=== PATIENT | male | born 1960 | race Caucasian/White ===

== ENCOUNTER 2021-09-15 05:39 | Observation (INO) | payer BC ==
[~2021-09-15] VITALS: Ht 175.3 cm; Wt 91.8 kg
[2021-09-15 06:09] LABS: BASOPHILS % (AUTO) 0.8 % (0.0-5.0); EOSINOPHILS % (AUTO) 0.9 % (0.0-8.0); HEMATOCRIT 46.4 % (42-54); LYMPHOCYTES % (AUTO) 28.9 % (21.0-51.0); MEAN CORPUSCULAR HEMOGLOBIN 29.9 pg (27.0-33.0); MEAN CORPUSCULAR HGB CONC 35.1 g/dL (32.0-36.0); MONOCYTES % (AUTO) 7.6 % (3.0-13.0); NEUTROPHILS % (AUTO) 61.4 % (40.0-77.0); PLATELET COUNT (AUTO) 236 K/uL (130-400); RED BLOOD CELL COUNT(AUTO) 5.46 MIL/uL (4.50-6.20); RED CELL DISTRIBUTION WIDTH 13.2 % (11.0-15.5); WHITE BLOOD COUNT (AUTO) 7.6 K/uL (4.8-10.8)
[2021-09-15] MEDS ORDERED: 0.9%NACL 1000ML 1,000 ML IV ONE ×2 (06:16→07:00)
[2021-09-15 06:31] LABS: ALBUMIN 4.1 g/dL (3.5-5.0); BILIRUBIN,TOTAL 0.6 mg/dL (0.2-1.0); CREATININE 1.1 mg/dL (0.5-1.5); POTASSIUM 4.2 mmol/L (3.5-5.1)
[2021-09-15 06:47] LABS: APPEARANCE,URINE CLEAR (CLEAR); BILIRUBIN,URINE NEGATIVE (NEGATIVE); COLOR,URINE YELLOW (YELLOW); GLUCOSE, URINE (UA) NEGATIVE (NEGATIVE); KETONES,URINE NEGATIVE (NEGATIVE); LEUKOCYTE ESTERASE ,URINE NEGATIVE (NEGATIVE); NITRATE,URINE NEGATIVE (NEGATIVE); OCCULT BLOOD,URINE NEGATIVE (NEGATIVE); PROTEIN,URINE NEGATIVE (NEGATIVE); UROBILINOGEN,URINE 0.2 mg/dL (0.2-1.0)
[2021-09-15] MEDS ORDERED: IOHEXOL 350 MG/ML 100ML INFUS..BTL IV ONE (06:48)
[2021-09-15] MEDS ORDERED: MORPHINE 2 MG SYG IVP ONE (07:00)
[2021-09-15] MEDS ORDERED: 0.9%NACL 1000ML 1,000 ML IV SCH (12:00)
[2021-09-15] MEDS ORDERED: HYDROMORPHONE 1 MG INJ IVP PRN (12:00)
[2021-09-15] MEDS ORDERED: ONDANSETRON 4MG INJ IVP PRN (12:00)
[2021-09-15] MEDS ORDERED: NITROGLYCERIN 0.4 MG SL TAB SL PRN (12:00)
[2021-09-15] MEDS ORDERED: MEPERIDINE-PF 25 MG/ML SYG IV PRN (12:00)
[2021-09-15] MEDS ORDERED: ONDANSETRON 4MG INJ IV PRN (12:00)
[2021-09-15] MEDS ORDERED: MAGNESIUM CITRATE 296 ML SOLUTION PO ONE ×2 (12:30→16:00)
[2021-09-15] MEDS ORDERED: 0.9%NACL 50ML 50 ML IV ONE (12:37)
[2021-09-15] MEDS: ZOSYN 3.375GM +NS 50ML IV SCH ×2 (12:47→20:00)
[2021-09-15] MEDS: LACTATED RINGERS 1000ML 1,000 ML IV SCH (12:47)
[2021-09-15] MEDS: FAMOTIDINE 20MG VIAL IV SCH (22:00)
[2021-09-15 23:45] VITALS: BP 130/73
[2021-09-16] VITALS (23 sets, daily range): BP systolic 121–149; BP diastolic 65–80
[2021-09-16] MEDS ORDERED: FLUT1BLS3 IH (00:08)
[2021-09-16] MEDS: LACTATED RINGERS 1000ML 1,000 ML IV SCH (00:13)
[2021-09-16] MEDS: ZOSYN 3.375GM +NS 50ML IV SCH ×3 (04:39→20:45)
[2021-09-16 05:18] LABS: BASOPHILS % (AUTO) 0.5 % (0.0-5.0); HEMATOCRIT 43.1 % (42-54); LYMPHOCYTES % (AUTO) 28.7 % (21.0-51.0); MEAN CORPUSCULAR HEMOGLOBIN 29.3 pg (27.0-33.0); MEAN CORPUSCULAR HGB CONC 34.6 g/dL (32.0-36.0); MEAN CORPUSCULAR VOLUME 84.8 fL (79-99); MONOCYTES % (AUTO) 8.6 % (3.0-13.0); NEUTROPHILS % (AUTO) 58.9 % (40.0-77.0); PLATELET COUNT (AUTO) 211 K/uL (130-400); RED BLOOD CELL COUNT(AUTO) 5.08 MIL/uL (4.50-6.20); RED CELL DISTRIBUTION WIDTH 13.2 % (11.0-15.5); WHITE BLOOD COUNT (AUTO) 6.4 K/uL (4.8-10.8)
[2021-09-16 05:32] LABS: ALBUMIN 3.4 g/dL (3.5-5.0); BILIRUBIN,TOTAL 0.9 mg/dL (0.2-1.0); CREATININE 1.1 mg/dL (0.5-1.5); POTASSIUM 3.8 mmol/L (3.5-5.1); TOTAL PROTEIN, SERUM 6.5 g/dL (6.0-8.3)
[2021-09-16] MEDS ORDERED: PANTOPRAZOLE 40 MG/VIAL IVP SCH (09:00)
[2021-09-16] MEDS: FAMOTIDINE 20MG VIAL IV SCH ×2 (09:50→20:45)
[2021-09-16] MEDS ORDERED: DEXAMETHASONE SOD PHOSPHATE 10MG/ML 1ML VIAL ONE (11:27)
[2021-09-16] MEDS ORDERED: GLYCOPYRROLATE 1 MG/5 ML SYRINGE ONE (11:27)
[2021-09-16] MEDS ORDERED: MIDAZOLAM HCL 1 MG/ML 2ML VIAL ONE ×2 (11:27→12:47)
[2021-09-16] MEDS ORDERED: SUCCINYLCHOLINE CHLORIDE 20 MG/ML 10 ML VIAL ONE (11:27)
[2021-09-16] MEDS ORDERED: LIDOCAINE PF 100MG/5ML (2%) SYRINGE 5ML ONE (11:27)
[2021-09-16] MEDS ORDERED: ONDANSETRON 4MG INJ ONE (11:27)
[2021-09-16] MEDS ORDERED: ROCURONIUM 10MG/1ML SYR 10 MG/ML ML ONE (11:27)
[2021-09-16] MEDS ORDERED: PROPOFOL 10 MG/ML 20ML VIAL IV ONE ×2 (11:27→13:37)
[2021-09-16] MEDS ORDERED: NEOSTIGMINE 5MG/5ML SYR IV ONE (11:27)
[2021-09-16] MEDS ORDERED: FENTANYL CITRATE PF 50 MCG/1 ML 2ML VIAL ONE ×2 (11:28→13:20)
[2021-09-16] MEDS ORDERED: LIDOCAINE 1%-EPI 1:100,000 20 ML VIAL IJ ONE (13:29)
[2021-09-16] MEDS ORDERED: BUPIVACAINE/PF 0.25% 30ML VIAL IJ ONE (13:29)
[2021-09-16] MEDS ORDERED: MEPERIDINE-PF 25 MG/ML SYG ONE (14:24)
[2021-09-16] MEDS: KETOROLAC 15MG/ML VIAL (15MG/ML) IV PRN (17:47)
[2021-09-16] MEDS ORDERED: OXYCODONE/ACETAMIN 5/325MG TAB PO PRN (18:00)
[2021-09-17] VITALS: BP 123/74
[2021-09-17] MEDS: LACTATED RINGERS 1000ML 1,000 ML IV SCH (03:08)
[2021-09-17 04:00] VITALS: BP 118/69
[2021-09-17] MEDS: ZOSYN 3.375GM +NS 50ML IV SCH (04:59)
[2021-09-17] MEDS: KETOROLAC 15MG/ML VIAL (15MG/ML) IV PRN (05:05)
[2021-09-17] MEDS: FAMOTIDINE 20MG VIAL IV SCH (08:19)
[2021-09-17 08:31] VITALS: BP 131/71
[2021-09-17 11:09] VITALS: BP 127/72
== END 2021-09-17 14:00 | disposition home or self-care (01) ==
LOC: EDH 05:39 → EDHIP 11:41 → UNDOADMOB 11:41 → 3DH 23:07
PROVIDERS: ADMIT Internal Medicine; ATTEND Internal Medicine
DX: K35.80 Unspecified acute appendicitis (principal); Z20.822 Contact with and (suspected) exposure to COVID-19; J45.909 Unspecified asthma, uncomplicated; G47.30 Sleep apnea, unspecified; K21.9 Gastro-esophageal reflux disease without esophagitis; E66.01 Morbid (severe) obesity due to excess calories; E86.9 Volume depletion, unspecified; K55.069 Acute infarction of intestine, part and extent unspecified; K59.00 Constipation, unspecified; Z68.30 Body mass index [BMI] 30.0-30.9, adult; Z79.899 Other long term (current) drug therapy; Z98.890 Other specified postprocedural states
CPT/HCPCS: 36415 ×2; 44970; 74177; 80053 ×2; 81003; 83690; 85025 ×2; 87635; 96365; 96366 ×3; 96375 ×2; 96376 ×2; 99291; A4222; A4223; A4344; A4452; A4649 ×5; A4930; C1769 ×3; G0378 ×49; J0330; J1100; J1885 ×2; J2001; J2175; J2250 ×2; J2405; J2543 ×6; J2704 ×2; J2710; J3010 ×2; J3490 ×7; J7030 ×2; J7120; Q9967; J1170

== ENCOUNTER → 2021-12-29 | Outpatient (CLI) | payer BC ==
[~2021-12-29] MED LIST: FLUT1BLS3 IH
== END | disposition home or self-care (01) ==
LOC: RAH 13:14
PROVIDERS: ATTEND Internal Medicine Critical Care Medicine
DX: J45.40 Moderate persistent asthma, uncomplicated (principal); D73.89 Other diseases of spleen; I51.7 Cardiomegaly; E66.9 Obesity, unspecified; Z86.16 Personal history of COVID-19
CPT/HCPCS: 36415; 71250; 82785; 85025; 86003; 86005; 93306